=== PATIENT | male | born 1930 | race Caucasian/White ===

== ENCOUNTER → 2017-04-04 | Outpatient (CLI) | payer MEDICARE, OTHER ==
[~2017-04-04] MED LIST: ALLO100T PO; ASPI-516 CHEW; FURO40TA PO; HYDR-3516 PO; KLOR20TA3 PO; LEVO100T5 PO; METO25TA3 PO
--- NOTE | 2017-04-04 13:21 | RADRPT ---
EXAM DATE/TIME: 04/04/2017 13:02 [facility] COMPARISON: No previous studies available for comparison. INDICATIONS : Preoperative chest X-Ray. Evaluate for communicable diseases, pneumothorax, pneumonia. MEDICAL HISTORY : None. SURGICAL HISTORY : None. ENCOUNTER: Initial ACUITY: 1 day PAIN SCORE: 0/10 LOCATION: Bilateral chest FINDINGS: The cardiac silhouette is enlarged in transverse diameter. The lungs are free of acute parenchymal op acity. No effusions are identified. There is elevation of the right hemidiaphragm. There is multileve l degenerative change throughout the spine. CONCLUSION: 1. Cardiomegaly. No acute pulmonary disease. Dread Vyas MD on April 04, 2017 at 13:18 Board Certified Radiologist. This report was verified electronically.
[2017-04-04 14:07] LABS: AUTOMATED NEUTROPHIL # 4.4 TH/MM3 (1.8-7.7); BASOPHIL % 0.5 % (0.0-2.0); EOSINOPHIL # 0.3 TH/MM3 (0-0.4); EOSINOPHIL % 4.7 % (0.0-4.0); HEMATOCRIT 41.6 % (39.0-51.0); HEMOGLOBIN 14.3 GM/DL (13.0-17.0); LYMPH % 19.5 % (9.0-44.0); LYMPHOCYTE # 1.3 TH/MM3 (1.0-4.8); MEAN CORPUSCULAR HEMOGLOBIN 30.5 PG (27.0-34.0); MEAN CORPUSCULAR HGB CONC 34.3 % (32.0-36.0); MEAN PLATELET VOLUME 7.5 FL (7.0-11.0); MONO % 7.8 % (0.0-8.0); MONOCYTE # 0.5 TH/MM3 (0-0.9); NEUT % 67.5 % (16.0-70.0); PLATELET COUNT 178 TH/MM3 (150-450); RED BLOOD COUNT 4.67 MIL/MM3 (4.50-5.90); RED CELL DISTRIBUTION WIDTH 15.9 % (11.6-17.2); WHITE BLOOD COUNT 6.5 TH/MM3 (4.0-11.0)
[2017-04-04 14:15] LABS: PROTHROMBIN TIME - PATIENT 10.5 SEC (9.8-11.6)
[2017-04-04 14:18] LABS: BILIRUBIN, URINE NEG (NEG); BLOOD, URINE NEG (NEG); GLUCOSE,URINE NEG (NEG); KETONE, URINE NEG (NEG); MUCUS URINE FEW /lpf (OCC); NITRITE,URINE NEG (NEG); SQUAMOUS EPITHELIAL CELL URINE <1 /hpf (0-5); URINE COLOR YELLOW (YELLW/STRAW); URINE LEUKOCYTE ESTERASE NEG (NEG)
[2017-04-04 14:29] LABS: ALBUMIN 3.7 GM/DL (3.4-5.0); AST (GOT) 18 U/L (15-37); BICARBONATE 25.8 MEQ/L (21.0-32.0); BLOOD UREA NITROGEN 15 MG/DL (7-18); CALCIUM 9.3 MG/DL (8.5-10.1); CHLORIDE 106 MEQ/L (98-107); GLOMERULAR FILTRATION RATE 57 ML/MIN (>89); GLUCOSE,FASTING 102 MG/DL (74-99); SODIUM (NA) 141 MEQ/L (136-145)
[2017-04-04 14:33] LABS: ALKALINE PHOSPHATASE 76 U/L (45-117); ALT (GPT) 14 U/L (12-78); TOTAL BILIRUBIN ADULT 0.9 MG/DL (0.2-1.0); TOTAL PROTEIN 7.6 GM/DL (6.4-8.2)
--- NOTE | 2017-04-05 13:29 | EKG ---
Date Performed: 04/04/2017 Time Performed: 11:56:32 PTAGE: 87 years EKG: Probable accelerated junctional rhythm Right bundle branch block Abnormal ECG NO PREVIOUS TRACING DOCTOR: Dileep Hercules Interpretating Date/Time 04/05/2017 13:28:27
== END ==
LOC: CPRE 10:04
PROVIDERS: ATTEND Neurological Surgery
DX: Z01.810 Encounter for preprocedural cardiovascular examination (principal); Z01.811 Encounter for preprocedural respiratory examination; Z01.812 Encounter for preprocedural laboratory examination; Z01.818 Encounter for other preprocedural examination; M51.26 Other intervertebral disc displacement, lumbar region; R94.31 Abnormal electrocardiogram [ECG] [EKG]
CPT/HCPCS: 36415; 71046; 80053; 81001; 85025; 85610; 85730; 87640; 87641; 93005

== ENCOUNTER 2017-04-09 06:34 | Observation (INO) | payer MEDICARE, OTHER ==
[~2017-04-09] VITALS: Ht 180.3 cm; Wt 106.9 kg
[~2017-04-09 06:34] MED LIST changes: -HYDR-3516 PO
[2017-04-09] MEDS ORDERED: THROMBIN (TOPICAL) 5,000 UNIT VIAL ONE (06:58)
[2017-04-09] MEDS ORDERED: BUPIVACAINE/EPINEPHRINE 0.5% 50 ML VIAL ONE (06:58)
[2017-04-09] MEDS ORDERED: GELFOAM SIZE 100 ONE (06:59)
[2017-04-09] MEDS ORDERED: GENTAMICIN SULFATE 80 MG/2 ML VIAL ONE ×2 (06:59→10:27)
[2017-04-09] MEDS ORDERED: ARTIFICIAL TEARS OPTH OINT 3.5 APPLIC/3.5 GM TUBO ONE (07:00)
[2017-04-09] MEDS ORDERED: POVIDONE IODINE 5% (ANTISEPSIS KIT) 4 APPLICATIONS EACH NARE PRN (07:00)
[2017-04-09] MEDS ORDERED: METOPROLOL TARTRATE 25 MG TAB PO PRN (07:00)
[2017-04-09] MEDS ORDERED: CHLORHEXIDINE GLUCONATE 2 % 1 PACK (2 CLOTHS) TOPICAL PRN (07:00)
[2017-04-09] MEDS ORDERED: ACETAMINOPHEN 1000 MG/100 ML 100 ML IV ONE (07:00)
[2017-04-09] MEDS ORDERED: SODIUM CHLORID 0.9% 500 ML IV PRN (07:00)
[2017-04-09] MEDS ORDERED: ceFAZolin 2 GM PREMIX 50 ML IV SCH (07:00)
[2017-04-09] MEDS ORDERED: LACTATED RINGER'S 1000 ML IV PRN (07:00)
[2017-04-09] MEDS ORDERED: methylPREDNISolone ACETATE 40 MG/ML VIAL ONE (07:18)
[2017-04-09] MEDS ORDERED: DO NOT ADM ANY ANTICOAGULANT DRUGS PRN (11:42)
[2017-04-09] MEDS ORDERED: ACETAMINOPHEN 325 MG TAB PO PRN (11:45)
[2017-04-09] MEDS ORDERED: MORPHINE SULFATE 2 MG/ML INJ IV PUSH PRN ×2 (11:45)
[2017-04-09] MEDS ORDERED: ACETAMINOPHEN/HYDROcodone 325 MG/10 MG TAB PO PRN ×2 (11:45)
[2017-04-09] MEDS ORDERED: ROCURONIUM INJ 50 MG/5 ML SYRINGE IV PUSH ONE (12:00)
[2017-04-09] MEDS ORDERED: LACTATED RINGER'S 1000 ML INJ 1,000 ML IV ONE (12:00)
[2017-04-09] MEDS ORDERED: NEOSTIGMINE 5 MG/5 ML SYRINGE IV PUSH ONE (12:00)
[2017-04-09] MEDS ORDERED: MIDAZOLAM HCL 2 MG/2 ML VIAL ONE (12:00)
[2017-04-09] MEDS ORDERED: PHENYLEPH/NS 1000 MCG/10 ML SYR IV ONE (12:00)
[2017-04-09] MEDS ORDERED: ONDANSETRON HCL 4 MG/2 ML VIAL IV ONE (12:00)
[2017-04-09] MEDS ORDERED: PROPOFOL 200 MG/20 ML AMP IV ONE (12:00)
[2017-04-09] MEDS ORDERED: ePHEDrine/NS 25 MG/5 ML SYRINGE IV ONE (12:00)
[2017-04-09] MEDS ORDERED: PHENYLEPHRINE HCL 10 MG/ML VIAL IV ONE (12:00)
[2017-04-09] MEDS ORDERED: LIDOCAINE HCL 1% PF 5 ML SYRINGE OTHER ONE (12:00)
[2017-04-09] MEDS ORDERED: METOPROLOL TARTRATE 5 MG/5 ML VIAL IV ONE (12:00)
[2017-04-09] MEDS ORDERED: SODIUM CHLORID 0.9% 500 ML INJ 500 ML IV ONE (12:00)
[2017-04-09] MEDS ORDERED: DEXAMETHASONE SOD PHOS 4 MG/ML VIAL IV ONE (12:00)
[2017-04-09] MEDS ORDERED: ESMOLOL HCL 100 MG/10 ML VIAL IV ONE (12:00)
[2017-04-09] MEDS ORDERED: GLYCOPYRROLATE 1 MG/5 ML SYRINGE IV PUSH ONE (12:00)
[2017-04-09] MEDS ORDERED: *LABETALOL HCL 100 MG/20 ML VIAL PERIprocedural Use ONLY ONE (12:03)
[2017-04-09] MEDS ORDERED: *ENALAPRILAT 1.25 MG/ML VIAL PERIprocedural Use ONLY ONE (12:20)
[2017-04-09] MEDS: NS + KCL 20 MEQ INJ 1,000 ML IV SCH (12:30)
--- NOTE | 2017-04-09 12:49 | PD.OP ---
Operative Report Date of Surgery: Apr 09, 2017 Preoperative Diagnosis: Thoracic disk herniation Postoperative Diagnosis: Thoracic disk herniation Procedure: T12-L1 left hemilamiectomy, foraminotomy, microsurgical resection of the disk Anesthesia: general Surgeon: Roverto Carrizales Clinical Secretary(s): Raquel Rose Operation and Findings: Mr Logan is a 87 year-old male who presented with intractable mechanical back pain and clinical evidence of left L1, L2 lower extremity radiculopathy. He was found to have a left disk extrusion causing significant lumbar spinal stenosis with significant mass effect on the neural structures which correlated with the clinical symptoms. The patient has failed maximum nonsurgical management including multiple modalities of conservative treatment as well as pain management interventions by an interventional pain specialist. A surgical decompression was indicated as a last resort. The [id number] details of the procedure, indications, alternatives, risks and potential complications were fully discussed with the patient. The patient fully understood. All the questions were answered. No guarantees were given. The patient voiced requesting the procedure and provided informed consents. The patient was offered the alternative of delaying the procedure and continuing with nonsurgical management. DETAILS OF THE SURGICAL PROCEDURE After the induction of general anesthesia, endotracheal intubation was performed. A Zuleta catheter, bilateral RAMA hose and sequential compression devices were placed and kept throughout the procedure. The patient was positioned prone on a Carlos table over a Evelio frame. All pressure points were carefully padded with eggcrate mattress. The eyes were tapped shut after ointment was applied by the anesthesiologist to prevent corneal abrasion. A Delano hugger was placed over the exposed lower body to maintain control of the core body temperature. The thoracic and lumbar region were prepped and draped in the usual sterile fashion. A spinal needle was placed for localization and an x-ray performed with a C-arm. A skin incision was made in the midline over the spinous processes T12-L1 with a #10 blade. Small subcutaneous bleeders were controlled with a bipolar and the dissection was carried out through the lumbar fascia exposing the spinous processes. A subperiostial dissection was performed with a Cruz elevator and a Bovie over the T12-L1 spinous process lamina and facets. A microdiscectomy self -retaining retractor was placed on the incision and an x-ray was obtained with an instrument placed underneath the lamina. At this point in the procedure the operating microscope was draped in the usual sterile fashion and brought to the field. The rest of the surgical procedure was performed using microsurgical dissection technique with exception of the closure. Once the level was confirmed, a decompressive laminectomy was performed at T12- L1 on the left side using the TPS drill with an 4mm drill bit. A medial facetectomy was performed on the left side and the superior free border of the ligamentum flavum was dissected with a ligament dissector and removed with a thin footplate 2 mm Kerrison. The L1 nerve root was identified and followed towards its exit in the foramen. Epidural veins located laterally to the dural sac were coagulated with a bipolar and incised with microscissors. Very carefully, the epidural space was assessed with a nerve hook. AN extruded disk was fund. Multiple disk fragments were removed with the nerve hoock and a micropituitary forceps. This allowed inspection of the disc space. Using microdissection technique, a systematic resection of the herniated disk was possible without retraction on the dural sac An excellent decompression of the dural sac and nerve root was achieved. The exit of the nerve root was inspected for residual disc fragments and hemostasis was secured with the bipolar forceps. The incision was irrigated with a large amount of saline solution. A Valsalva maneuver failed to show any cerebrospinal fluid leak or bleeding. The decompression was assessed again and found to be satisfactory. The incision was then closed in layers. The fascia was closed with 0 Vicryl sutures in an interrupted fashion. The superficial fascia was closed with 0 Vicryl sutures. The fascia was infiltrated with 0.5% Marcaine with epinephrine 1:100,000 dilution. The subcutaneous tissue was irrigated then closed with 0 Vicryl and 3 -0 Vicryl. The skin was closed with 4-0 running subcuticular Vicryl. A sterile dressing was applied. At the end of the procedure, the sponge, needle and instrument counts were all correct. Estimated blood loss was less than 50 cc. No blood transfusion was given. No intraoperative complications occurred. The patient received prophylactic antibiotics. The patient was then extubated and transferred to the recovery room in stable condition. Roverto Carrizales MD Apr 09, 2017 12:49
[2017-04-09 14:30] VITALS: BP 146/78; RESP 18; TEMP 97.9; O2SAT 94
--- NOTE | 2017-04-09 14:43 | RADRPT ---
EXAM DATE/TIME: 04/09/2017 09:47 [facility] COMPARISON: No previous studies available for comparison. INDICATIONS : Level Localization T12,L1 for laminectomy. MEDICAL HISTORY : SURGICAL HISTORY : None. ENCOUNTER: Initial ACUITY: 1 day PAIN SCORE: Non-responsive. LOCATION: Thoracolumbar. FINDINGS: Metallic probe at L1. CONCLUSION: The metallic probe at L1.. Howard Schultz MD FACR on April 09, 2017 at 14:40 Board Certified Radiologist. This report was verified electronically.
[2017-04-09 15:18] VITALS: PULSE 75
--- NOTE | 2017-04-09 15:50 | PD.CONS ---
HPI Service Critical Care Medicine Consult Requested By Dr. Carrizales Reason for Consult Bradycardia/ heart block (intraop) Primary Care Physician Rene Foster M.D. 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 Carrizales under general anesthesia. Reportedly intraoperatively patient had bradycardia and variable heart block which he recovered following anesthesia. Patient was extubated and transferred to PACU and subsequently to ICU. I was consulted by Dr. Carrizales for medical management. When I evaluated the patient in the ICU he was awake and alert, laying in bed in no acute distress. He denied any chest pain or shortness of breath. Denied any palpitations. Rhythm on monitor was a flutter with ventricular rate 70s. Review of Systems ROS Limitations: Clinical Condition (per HPI) Past Family Social History Allergies: Coded Allergies: No Known Allergies (Unverified , 04/09/17) Past Medical History Hypothyroidism, cardiac arrhythmias, UTI Past Surgical History Tonsillectomy, carpal tunnel syndrome Reported Medications Aspirin 81 mg daily Levothyroxine 100 g daily Klor-Con 10 20 and MICU by mouth daily Metoprolol 25 mg by mouth daily Allopurinol 100 mg by mouth daily Lasix 40 mg by mouth daily Active Ordered Medications Current Medications Lactated Ringer's 1,000 ml @ 30 mls/hr Q24H PRN IV SEE LABEL COMMENTS Last administered on 04/09/17at 07:45; Start 04/09/17 at 07:00; Stop 04/09/17 at 12:58 ; Status DC Sodium Chloride 500 ml @ 30 mls/hr [id number] PRN IV SEE LABEL COMMENTS; Start 01/15 at 07:00; Stop 04/09/17 at 12:58; Status DC Metoprolol Tartrate (Lopressor) 25 mg PRIVACY DIRECTOR PRN PO SEE LABEL COMMENTS; Start 04/09/17 at 07:00; Stop 04/12/17 at 06:59 Povidone Iodine (Betadine 5% Antisepsis Kit) 1 applic PRIVACY DIRECTOR PRN EACH NARE SEE LABEL COMMENTS Last administered on 04/09/17at 07:55; Start 04/09/17 at 07:00 ; Stop 04/12/17 at 06:59 Chlorhexidine Gluconate (Chlorhexidine 2% Cloth) 3 pack PRIVACY DIRECTOR PRN TOPICAL SEE LABEL COMMENTS Last administered on 04/09/17at 07:30; Start 04/09/17 at 07:00 ; Stop 04/12/17 at 06:59 Cefazolin Sodium/ Dextrose 50 ml @ 100 mls/hr PRIVACY DIRECTOR IV Last administered on 04/09/17at 08:00; Start 04/09/17 at 07:00; Stop 04/09/17 at 12:52; Status DC Bupivacaine HCl/ Epinephrine Bitart (Sensorcaine-Epi 0.5% 50 ml Inj) 50 ml STK- MED ONCE .ROUTE Last administered on 04/09/17at 09:52; Start 04/09/17 at 06:58; Stop 04/09/17 at 06:59; Status DC Thrombin (Thrombin Top Soln) 10,000 units STK-MED ONCE .ROUTE Last administered on 04/09/17at 09:52; Start 04/09/17 at 06:58; Stop 04/09/17 at 06:59 ; Status DC Gelatin (Gelfoam 100 Top) 1 foam STK-MED ONCE .ROUTE Last administered on at 09:52; Start 04/09/17 at 06:59; Stop 04/09/17 at 07:00; Status DC Gentamicin Sulfate (Gentamicin Inj) 240 mg STK-MED ONCE .ROUTE Last administered on 04/09/17at 09:52; Start 04/09/17 at 06:59; Stop 04/09/17 at 07:00 ; Status DC Acetaminophen 100 ml @ As Directed STK-MED ONCE IV ; Start 04/09/17 at 07:00; Stop 04/09/17 at 07:01; Status DC Artificial Tears (Lacrilube Opht Oint) 3.5 applic STK-MED ONCE .ROUTE ; Start at 07:00; Stop 04/09/17 at 07:01; Status DC Methylprednisolone Acetate (Depo-Medrol Inj) 40 mg STK-MED ONCE .ROUTE ; Start 04/09/17 at 07:18; Stop 04/09/17 at 07:19; Status DC Gentamicin Sulfate (Gentamicin Inj) 80 mg STK-MED ONCE .ROUTE Last administered on 04/09/17at 10:27; Start 04/09/17 at 10:27; Stop 04/09/17 at 10:28 ; Status DC Potassium Chloride/Sodium Chloride 1,000 ml @ 100 mls/hr Q10H IV Last administered on 04/09/17at 12:30; Start 04/09/17 at 13:00 Cefazolin Sodium/ Dextrose 50 ml @ 100 mls/hr Q8H IV ; Start 04/09/17 at 16:00 ; Stop 04/10/17 at 08:29 Docusate Sodium (Colace) 100 mg BID PO ; Start 04/09/17 at 21:00 Pantoprazole Sodium (Protonix) 40 mg DAILY PO ; Start 04/10/17 at 09:00 Acetaminophen/ Hydrocodone Bitart ([place] 10-325 Mg) 1 tab Q4H PRN PO PAIN SCALE 1 TO 5; Start 04/09/17 at 11:45 Acetaminophen/ Hydrocodone Bitart ([place] 10-325 Mg) 2 tab Q4H PRN PO PAIN SCALE 6 TO 10; Start 04/09/17 at 11:45 Morphine Sulfate (Morphine Inj) 2 mg Q2H PRN IV PUSH PAIN SCALE 1 TO 6; Start 04/09/17 at 11:45 Morphine Sulfate (Morphine Inj) 4 mg Q2H PRN IV PUSH PAIN SCALE 7 TO 10; Start 04/09/17 at 11:45 Acetaminophen (Tylenol) 650 mg Q4H PRN PO TEMPERATURE > 101.5 F; Start at 11:45 Fentanyl Citrate (fentaNYL INJ) 200 mcg STK-MED ONCE .ROUTE ; Start 04/09/17 at 12:00; Stop 04/09/17 at 12:01; Status DC Midazolam HCl (Versed Inj) 2 mg STK-MED ONCE .ROUTE ; Start 04/09/17 at 12:00; Stop 04/09/17 at 12:01; Status DC Labetalol HCl (*TRANDATE INJ PERIprocedural Use ONLY) 100 mg STK-MED ONCE .ROUTE Last administered on 04/09/17at 12:05; Start 04/09/17 at 12:03; Stop 01/15 at 12:04; Status DC Enalaprilat (*VASOTEC INJ PERIprocedural Use ONLY) 1.25 mg STK-MED ONCE .ROUTE Last administered on 04/09/17at 12:15; Start 04/09/17 at 12:20; Stop 04/09/17 at 12:21; Status DC Miscellaneous Information ALL NURSING DEPARTME... UNSCH PRN .XX SEE LABEL COMMENTS; Start 04/09/17 at 11:42; Stop 04/10/17 at 11:41 Family History Noncontributory at this time Social History Prior history of smoking Physical Exam Vital Signs Vital Signs Date Time Temp Pulse Resp B/P (MAP) Pulse Ox O2 Delivery O2 Flow Rate FiO2 04/09/17 15:26 97 Nasal Cannula 3.00 04/09/17 15:18 75 04/09/17 14:30 97.9 70 18 120/60 (80) 94 Nasal Cannula 3 146/78 (100) 04/09/17 14:00 69 14 110/59 (76) 96 134/66 (88) 04/09/17 13:45 69 12 133/69 (90) 95 157/83 (107) 04/09/17 13:30 70 18 142/63 (89) 95 161/89 (113) 04/09/17 13:15 69 16 151/85 (107) 94 175/93 (120) 04/09/17 13:00 68 18 143/82 (102) 94 176/94 (121) 04/09/17 12:45 68 16 147/83 (104) 95 179/94 (122) 04/09/17 12:30 67 16 158/80 (106) 94 191/99 (129) 04/09/17 12:15 68 14 164/95 (118) 95 190/100 (130) 04/09/17 12:00 69 14 176/99 (124) 91 193/105 (134) 04/09/17 11:46 97.8 68 14 136/63 (87) 94 Nasal Cannula 3 04/09/17 07:38 97.8 81 16 159/91 (113) 95 Physical Exam HEENT/Neuro: No pallor or icterus, tongue moist, PORTIA, Awake alert oriented 3 , nonfocal grossly, moving all 4 extremities Neck: No JVD Chest/pulmonary: CTA bilaterally Cardiovascular: S1-S2 regular no gallop or murmur, a flutter on monitor GI/abdomen: Soft, nontender, bowel sounds present Extremities: Warm bilaterally, no edema Back: Dressing over surgical site which is clean dry and intact. Assessment and Plan Assessment and Plan 87-year-old male with: T12/L1 disc herniation with myelopathy status post T12-L1 left hemilamiectomy, foraminotomy, microsurgical resection of the disk Chronic a flutter Hypothyroidism Plan: Neuro: Continue pain medications and neurochecks per neurosurgery protocol. Cardiovascular: IV hydration. Resume metoprolol, Lasix and potassium supplementation. Patient has been evaluated by Dr. Fisher from cardiology who recommends full anticoagulation eventually. He discussed this with the patient who said he will decide about it later. Pulmonary: Supplemental O2 as needed, bronchodilators when necessary. Incentive spirometry. GI/liver: Advance diet as tolerated Renal/: Follow intake output, monitor and replete electrolytes, follow BUN/ creatinine. ID: Perioperative antibiotic prophylaxis per Dr. Carrizales. Heme: Follow CBC Endocrine: Watch for hyperglycemia, SSI for glycemic control if needed. Prophylaxis: SCDs. Subcutaneous Lovenox when okay with Dr. Carrizales Discussed with COMMERCIAL ANALYST. Discussed with Dr. Fisher. Critical care will be available as needed. Khadar Domínguez MD Apr 09, 2017 15:50
[2017-04-09 16:00] VITALS: PULSE 65
[2017-04-09] MEDS: ceFAZolin 2 GM PREMIX 50 ML IV SCH (16:02)
[2017-04-09 18:00] VITALS: PULSE 97
[2017-04-09 20:00] VITALS: PULSE 78
[2017-04-09] MEDS: DOCUSATE SODIUM 100 MG CAP PO SCH (21:00)
--- NOTE | 2017-04-09 21:26 | MB ---
cc: JOVANNY GARCIA MD DATE OF CONSULTATION: 04/09/2017 REASON FOR CONSULTATION: HISTORY OF PRESENT ILLNESS: The patient is an 87-year-old white male who underwent left hemilaminectomy for microsurgical resection of the T12-L1 disc by Dr. Carrizales. He was found to be bradycardiac with atrial flutter with variable block during the surgery. His rate is currently normal. He has no chest pain, shortness of breath, dizziness, lightheadedness or edema. He has a history of arrhythmia and was seen by Dr. Lynn and Dr. Bhandari in the past. PAST MEDICAL HISTORY: 1. Positive for hypothyroidism. 2. Cardiac arrhythmia. 3. Lumbar disc herniation. 4. UTI. 5. Tonsillectomy. 6. Carpal tunnel surgery. MEDICATIONS: 1. Aspirin. 2. Levothyroxine. 3. Klorcon. 4. Metoprolol. 5. Allopurinol. 6. Lasix. SOCIAL HISTORY: The patient has prior history of smoking but has not smoked for several years. She drinks alcohol infrequently. FAMILY HISTORY: Negative for heart disease. REVIEW OF SYSTEMS: Otherwise negative. PHYSICAL EXAMINATION: VITAL SIGNS: Blood pressure 146/78, pulse 65 and regular. HEENT: Negative. 2+ carotid upstrokes. No bruits. LUNGS: Clear. HEART: Irregular with no murmurs, rubs, or gallops. ABDOMEN: Soft, no bruits. EXTREMITIES: Without edema, 2+ distal pulses. NEUROLOGIC: Grossly nonfocal. EKG was reviewed and showed atrial flutter with variable block with normal axis and intraventricular conduction delay. LABORATORY DATA: Hemoglobin 14.3, potassium 4.1, creatinine 1.2, AST/ALT normal. DIAGNOSIS: 1. Atrial flutter with variable block. 2. Bradycardia during anesthesia. 3. Recent lumbar diskectomy. 4. Hypothyroidism. DISPOSITION: Ms. Logan was found to have chronic atrial flutter with variable block. She had increased heart block during anesthesia which has now resolved. I recommend to continue his current medical program. I strongly encouraged him to consider therapy with full anticoagulation since he is on aspirin only. The patient is somewhat reluctant to be fully anticoagulated at this time. He wishes to be discharged home tomorrow. I will follow him for cardiology during his hospitalization. He will follow up with his cardiologists after discharge. MD DENIS Mcclain /4:50 PM /8:45 PM MTDGus
[2017-04-09 22:00] VITALS: PULSE 76
[2017-04-10] VITALS: PULSE 74
[2017-04-10] MEDS: ceFAZolin 2 GM PREMIX 50 ML IV SCH ×2 (00:04→08:39)
[2017-04-10] MEDS: NS + KCL 20 MEQ INJ 1,000 ML IV SCH ×2 (00:11→08:39)
[2017-04-10 02:00] VITALS: PULSE 74
[2017-04-10 04:00] VITALS: PULSE 64
[2017-04-10 06:00] VITALS: PULSE 92
[2017-04-10 08:00] VITALS: PULSE 85
--- NOTE | 2017-04-10 08:15 | HHI.CCPN ---
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 Carrizales under general anesthesia. Reportedly intraoperatively patient had bradycardia and variable heart block which he recovered following anesthesia. Patient was extubated and transferred to PACU and subsequently to ICU. I was consulted by Dr. Carrizales for medical management. When I evaluated the patient in the ICU he was awake and alert, laying in bed in no acute distress. He denied any chest pain or shortness of breath. Denied any palpitations. Rhythm on monitor was a flutter with ventricular rate 70s. 04/10: Stable hemodynamics overnight. Back pain much improved. Objective Vital Signs Date Time Temp Pulse Resp B/P (MAP) Pulse Ox O2 Delivery O2 Flow Rate FiO2 04/10/17 06:00 92 04/09/17 19:00 96 Nasal Cannula 3.00 04/09/17 14:30 97.9 18 120/60 (80) 146/78 (100) Intake and Output 04/10/17 04/10/17 04/11/17 08:00 16:00 00:00 Output Total 700 ml Balance -700 ml Objective Remarks HEENT/Neuro: No pallor or icterus, tongue moist, PORTIA, Awake alert oriented 3 , nonfocal grossly, moving all 4 extremities Neck: Supple, airway widely patent. Chest/pulmonary: CTA bilaterally, comfortbale pattern, no adventitious sounds. Cardiovascular: S1-S2 regular no gallop or murmur, intermittent a flutter on monitor GI/abdomen: Soft, nontender, bowel sounds present, no guarding. Extremities: Warm bilaterally, no edema. Well perfused. Back: Dressing over surgical site which is clean dry and intact. A/P Assessment and Plan 87-year-old male with: T12/L1 disc herniation with myelopathy status post T12-L1 left hemilamiectomy, foraminotomy, microsurgical resection of the disk Chronic a flutter Hypothyroidism Plan: Neuro: Continue prn pain medications and neuro checks per neurosurgery protocol. Cardiovascular: IV hydration. Continue metoprolol, Lasix and potassium supplementation. Patient has been evaluated by Dr. Fisher from cardiology who recommends full anticoagulation eventually. He discussed this with the patient who said he will decide about it later. Pulmonary: Supplemental O2 as needed, bronchodilators when necessary. Incentive spirometry. GI/liver: Advance diet as tolerated Renal/: Follow intake output, monitor and replete electrolytes, follow BUN/ creatinine. ID: Perioperative antibiotic prophylaxis per Dr. Carrizales. Heme: Follow Hgb. Endocrine: Watch for hyperglycemia, SSI for glycemic control if needed. Prophylaxis: SCDs. Subcutaneous Lovenox when okay with Dr. Carrizales Overall impression: Stable hemodynamics. Atrial arrhythmia apparently a long- term issue, without symptoms. Cardiology Service has made recommendation for anticoagulation. Patient is suitable for transfer. Nathaniel Alcantar MD Apr 10, 2017 08:14
[2017-04-10] MEDS: DOCUSATE SODIUM 100 MG CAP PO SCH ×2 (08:39→09:00)
[2017-04-10] MEDS ORDERED: PANTOPRAZOLE SOD 40 MG DELAYED RELEASE TAB PO SCH (09:00)
[2017-04-10] MEDS ORDERED: HYDR-3516 PO (09:19)
[2017-04-10 10:00] VITALS: PULSE 80
--- NOTE | 2017-04-10 11:09 | HHI.DCPOC ---
Discharge Care Plan Diagnosis: (1) S/P lumbar laminectomy Goals to Promote Your Health * To prevent worsening of your condition and complications * To maintain your health at the optimal level Directions to Meet Your Goals Take your medications as prescribed Follow your dietary instruction Follow activity as directed Keep your appointments as scheduled Take your immunizations and boosters as scheduled If your symptoms worsen call your PCP, if no PCP go to Urgent Care Center or Emergency Room Smoking is Dangerous to Your Health. Avoid second hand smoke Call the 24-hour hour crisis hotline for domestic abuse at Jerilyn Johnson Apr 10, 2017 11:09
--- NOTE | 2017-04-10 11:12 | HHI.FF ---
Face to Face Verification Diagnosis: (1) Myelopathy (2) S/P lumbar laminectomy Physical Therapy Order: Improve ambulation, Strength and gait training Home Health Nursing Order: Medical education Signs/symptoms of disease process Wound care and dressing changes (Optifoam dressing kept for 1 week, f/u in office for wound check. ok to shower only. ) Nursing assessment with vital signs I have seen patient Rex LoganChito on 04/10/17. My clinical findings support the need for the requested home health care services because: Ltd mobility - disease progression Deconditioned w/ increased weakness High risk of falls I certify that my clinical findings support that this patient is homebound because: Post-op weakness Unsteady gait/balance Unsafe to leave home unassisted Jerilyn Johnson Apr 10, 2017 11:12
--- NOTE | 2017-04-10 12:39 | HHI.NSPN ---
(Jerilyn Johnson) Note Status Status: Progress Note (Jerilyn Johnson) Interval History Interval History Mr. Logan is s/p T12-L1 decompressive laminectomy with microdiscectomy He developed bradycardia during intubation, now stabilized. He reports improved lumbar and lower extremity pain and numbness. Hemodynamically stable overnight, he requests to be dc home (Jerilyn Johnson) Labs, Micro, & Vital Signs Results Date Time Temp Pulse Resp B/P (MAP) Pulse Ox O2 Delivery O2 Flow Rate FiO2 04/10/17 10:00 80 04/10/17 08:00 85 04/10/17 07:00 Room Air 04/10/17 06:00 92 04/10/17 04:00 64 04/10/17 02:00 74 04/10/17 00:00 74 04/09/17 22:00 76 04/09/17 20:00 78 04/09/17 19:00 96 Nasal Cannula 3.00 04/09/17 18:00 97 04/09/17 16:00 65 04/09/17 15:26 97 Nasal Cannula 3.00 04/09/17 15:18 75 04/09/17 14:30 97.9 70 18 120/60 (80) 94 Nasal Cannula 3 146/78 (100) 04/09/17 14:00 69 14 110/59 (76) 96 134/66 (88) 04/09/17 13:45 69 12 133/69 (90) 95 157/83 (107) 04/09/17 13:30 70 18 142/63 (89) 95 161/89 (113) 04/09/17 13:15 69 16 151/85 (107) 94 175/93 (120) 04/09/17 13:00 68 18 143/82 (102) 94 176/94 (121) 04/09/17 12:45 68 16 147/83 (104) 95 179/94 (122) 04/11/17 06:59 Intake Total 50 ml Balance 50 ml Constitutional Vital Signs Date Time Temp Pulse Resp B/P (MAP) Pulse Ox O2 Delivery O2 Flow Rate FiO2 04/10/17 10:00 80 04/10/17 08:00 85 04/10/17 07:00 Room Air 04/10/17 06:00 92 04/10/17 04:00 64 04/10/17 02:00 74 04/10/17 00:00 74 04/09/17 22:00 76 04/09/17 20:00 78 04/09/17 19:00 96 Nasal Cannula 3.00 04/09/17 18:00 97 04/09/17 16:00 65 04/09/17 15:26 97 Nasal Cannula 3.00 04/09/17 15:18 75 04/09/17 14:30 97.9 70 18 120/60 (80) 94 Nasal Cannula 3 146/78 (100) 04/09/17 14:00 69 14 110/59 (76) 96 134/66 (88) 04/09/17 13:45 69 12 133/69 (90) 95 157/83 (107) 04/09/17 13:30 70 18 142/63 (89) 95 161/89 (113) 04/09/17 13:15 69 16 151/85 (107) 94 175/93 (120) 04/09/17 13:00 68 18 143/82 (102) 94 176/94 (121) 04/09/17 12:45 68 16 147/83 (104) 95 179/94 (122) 04/11/17 06:59 Intake Total 50 ml Balance 50 ml (Jerilyn Johnson) Review of Systems Respiratory: DENIES: Shortness of breath Cardiovascular: DENIES: Chest pain Gastrointestinal: DENIES: Vomiting (Jerilyn Johnson) Physical Exam Alert, awake, conversing well pupils equal, facial motor symmetric moves all four extremities (Jerilyn Johnson) Medications Current Medications Current Medications Medications (Trade) Dose Ordered Sig/Nirmala Route PRN Reason Start Time Stop Time Status Last Admin Dose Admin Metoprolol Tartrate (Lopressor) 25 mg [employer]ATE STORAGE CLERK PRN PO SEE LABEL COMMENTS 04/09/17 07:00 04/12/17 06:59 Povidone Iodine (Betadine 5% Antisepsis Kit) 1 applic [employer]OR[employer]ERK PRN EACH NARE SEE LABEL COMMENTS 1/10/18 07:00 04/12/17 06:59 04/09/17 07:55 Chlorhexidine Gluconate (Chlorhexidine 2% Cloth) 3 pack [employer]ERK PRN TOPICAL SEE LABEL COMMENTS 04/09/17 07:00 04/12/17 06:59 04/09/17 07:30 Potassium Chloride/Sodium Chloride 1,000 ml @ 100 mls/hr Q10H IV 04/09/17 13:00 04/10/17 08:39 Docusate Sodium (Colace) 100 mg BID PO 04/09/17 21:00 Pantoprazole Sodium (Protonix) 40 mg DAILY PO 04/10/17 09:00 04/10/17 08:39 Acetaminophen/ Hydrocodone Bitart ([place] 10-325 Mg) 1 tab Q4H PRN PO PAIN SCALE 1 TO 5 04/09/17 11:45 Acetaminophen/ Hydrocodone Bitart ([place] 10-325 Mg) 2 tab Q4H PRN PO PAIN SCALE 6 TO 10 04/09/17 11:45 Morphine Sulfate (Morphine Inj) 2 mg Q2H PRN IV PUSH PAIN SCALE 1 TO 6 04/09/17 11:45 Morphine Sulfate (Morphine Inj) 4 mg Q2H PRN IV PUSH PAIN SCALE 7 TO 10 04/09/17 11:45 Acetaminophen (Tylenol) 650 mg Q4H PRN PO TEMPERATURE > 101.5 F 04/09/17 11:45 (Jerilyn Johnson) Plan Plan Remarks cont current care appreciate critical care assistance PT eval to mobilize OOB lumbar brace when out of bed Dr. Carrizales cleared for discharge home dc home with [facility] (Jerilyn Johnson) Attending Statement The exam, history, and the medical decision-making described in the above note were completed with the assistance of the mid-level provider. I reviewed and agree with the findings presented. I attest that I had a [id number] encounter with the patient on the same day, and personally performed and documented my assessment and findings in the medical record. (Roverto Carrizales MD) Jerilyn Johnson Apr 10, 2017 12:39 Roverto Carrizales MD Apr 13, 2017 10:23
--- NOTE | 2017-04-10 14:14 | PD.CARD.PN ---
Subjective Subjective Remarks No CP or SOB, feels fine Objective Medications Current Medications Medications (Trade) Dose Ordered Sig/Nirmala Route Start Time Stop Time Status Last Admin (Lopressor) 25 mg MEMBERSHIP [employer]ICITOR PRN PO 04/09/17 07:00 04/12/17 06:59 (Betadine 5% Antisepsis Kit) 1 applic [employer]BERSH[employer] SOLICITOR PRN EACH NARE 04/09/17 07:00 04/12/17 06:59 04/09/17 07:55 (Chlorhexidine 2% Cloth) 3 pack [employer]BER[employer] SOLIC[employer]OR PRN TOPICAL 04/09/17 07:00 04/12/17 06:59 04/09/17 07:30 Potassium Chloride/Sodium Chloride 1,000 ml @ 100 mls/hr Q10H IV 04/09/17 13:00 04/10/17 08:39 (Colace) 100 mg BID PO 04/09/17 21:00 (Protonix) 40 mg DAILY PO 04/10/17 09:00 04/10/17 08:39 ([place] 10-325 Mg) 1 tab Q4H PRN PO 04/09/17 11:45 ([place] 10-325 Mg) 2 tab Q4H PRN PO 04/09/17 11:45 (Morphine Inj) 2 mg Q2H PRN IV PUSH 04/09/17 11:45 (Morphine Inj) 4 mg Q2H PRN IV PUSH 04/09/17 11:45 (Tylenol) 650 mg Q4H PRN PO 04/09/17 11:45 Vital Signs / I&O Vital Signs Date Time Temp Pulse Resp B/P (MAP) Pulse Ox O2 Delivery O2 Flow Rate FiO2 04/10/17 10:00 80 04/10/17 08:00 85 04/10/17 07:00 Room Air 04/10/17 06:00 92 04/10/17 04:00 64 04/10/17 02:00 74 04/10/17 00:00 74 04/09/17 22:00 76 04/09/17 20:00 78 04/09/17 19:00 96 Nasal Cannula 3.00 04/09/17 18:00 97 04/09/17 16:00 65 04/09/17 15:26 97 Nasal Cannula 3.00 04/09/17 15:18 75 04/09/17 14:30 97.9 70 18 120/60 (80) 94 Nasal Cannula 3 146/78 (100) I/O 04/09/17 04/09/17 04/09/17 04/10/17 04/10/17 04/10/17 06:59 14:59 22:59 06:59 14:59 22:59 Intake Total 1285 ml 290 ml 50 ml Output Total 1200 ml 350 ml 700 ml Balance 85 ml -60 ml -700 ml 50 ml Intake Oral 240 ml IV Total 185 ml 50 ml 50 ml Other 1100 ml Output Urine Total 700 ml 350 ml 700 ml Estimated Blood Loss 50 ml Other 450 ml # Bowel Movements 0 0 Physical Exam GENERAL: In NAD SKIN: Warm and dry. HEAD: Normocephalic. EYES: No scleral icterus. No injection or drainage. NECK: Supple, trachea midline. No JVD or lymphadenopathy. CARDIOVASCULAR: Irregular rate and rhythm without murmurs, gallops, or rubs. RESPIRATORY: Breath sounds equal bilaterally. No accessory muscle use. GASTROINTESTINAL: Abdomen soft, non-tender, nondistended. MUSCULOSKELETAL: No cyanosis, or edema. Assessment and Plan Problem List: (1) Atrial flutter ICD Codes: I48.92 - Unspecified atrial flutter (2) Bradycardia ICD Codes: R00.1 - Bradycardia, unspecified (3) S/P lumbar laminectomy ICD Codes: Z98.890 - Other specified postprocedural states Assessment and Plan No symptoms. No recurrent bradycardia. I recommend full anticoagulation to decrease the risk of stroke. The patient is reluctant to change his current program. He will be discharged home today and will follow up with his medical editor, Dr. Lynn. Chaz Fisher MD Apr 10, 2017 14:14
--- NOTE | 2017-04-10 20:26 | EKG ---
Date Performed: 04/09/2017 Time Performed: 12:38:26 PTAGE: 87 years EKG: ATRIAL FLUTTER/TACHYCARDIA INTRAVENTRICULAR CONDUCTION DELAY ABNORMAL ECG NO SIGNIFICANT CH MIGUELINA SINCE PRIOR TRACING PREVIOUS TRACING : 04/04/2017 11.56 DOCTOR: Elke Kearney Interpretating Date/Time 04/10/2017 20:25:19
== END 2017-04-10 15:04 | disposition home or self-care (01) ==
LOC: HSDC 06:34 → HSDI 11:36 → N03A 15:06
PROVIDERS: ADMIT Neurological Surgery; ATTEND Neurological Surgery
DX: M51.04 Intervertebral disc disorders with myelopathy, thoracic region (principal); M48.061 Spinal stenosis, lumbar region without neurogenic claudication; M54.15 Radiculopathy, thoracolumbar region; E03.9 Hypothyroidism, unspecified; I48.92 Unspecified atrial flutter; R00.1 Bradycardia, unspecified; I45.9 Conduction disorder, unspecified; Z79.899 Other long term (current) drug therapy; Z79.82 Long term (current) use of aspirin; Z87.891 Personal history of nicotine dependence
CPT/HCPCS: 00620; 63046; 72070; 76000; 93005; 94150; 96365; 96366; 96368; 97162; G0378; G8987; G8988; J0131; J0690; J1030; J1100; J1580; J2250; J2370; J2405; J2710; J3010; J3480; J7040; J7120; L0627